=== PATIENT | male | born 1980 | race Caucasian/White ===

== ENCOUNTER 2024-01-03 22:28 | Emergency (ER) | payer OTHER, SELFPAY ==
[2024-01-03 22:31] VITALS: BP 173/86; PULSE 109; RESP 16; TEMP 36.9; O2SAT 98; BMI 29.0
--- NOTE | 2024-01-03 22:41 | XR_ITS ---
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 . Comparison: None. Technique: 4 views left knee Findings/Impression: There is no fracture or malalignment. There is minimal degenerative change. There is no knee joint effusion. Electronically authenticated by: TALIA VILLAFANA Date: 01/03/2024 23:11
--- NOTE | 2024-01-03 22:42 | ED.LOWEXI1 ---
HPI - Extremity Injury (Lower) General Chief Complaint: Extremity Injury, Lower Stated Complaint: LT KNEE INJURY Time Seen by Provider: 01/03/24 22:30 Source: patient Mode of arrival: walk-in Limitations: no limitations History of Present Illness HPI Narrative: Patient works at [employer] [place], around 30 minutes ago, a pipe wrench that was attached to a machine he was working with, suddenly flew off the machine as it was started up and started spinning. The pipe wrench struck the patient in the medial left knee. Nothing taken for pain INCOME TAX CONSULTANT. Related Data Previous Rx's Medication Instructions Recorded nabumetone 750 mg tablet 750 mg PO BID PRN pain #14 tabs 01/03/24 Allergies Allergy/AdvReac Type Severity Reaction Status Date / Time No Known Drug Allergies Allergy Verified 01/03/24 22:37 PFSH [facility] Social History Smoking status: Former smoker Exam Narrative Exam Narrative: Nurses note and vital signs reviewed and patient is not hypoxic. afebrile General: The patient appears well and in no apparent distress. Patient is resting comfortably on cart. GCS = 15. Skin: Warm, dry, no pallor noted. Cardiovascular: Normal peripheral perfusion Respiratory: Patient is in no distress, no accessory muscle use, no wheezing. Musculoskeletal: Tenderness and early ecchymosis to the medial left knee, which has decreased ROM secondary to pain. No deformity noted. No pain with left patellar manipulation. No additional sign of long bone fracture. Moves three remaining extremities in all modalities with 5/5 strength. Neurological: A&O x4, normal equal panel saw operator strength, normal finger to nose, normal speech, normal coordination, normal motor, normal sensory. Psychiatric: Cooperative Constitutional Vital Signs, click to edit/add: Last Vital Signs Temp 98.4 F 01/03/24 22:31 Pulse 109 H 01/03/24 22:31 Resp 16 01/03/24 22:31 BP 173/86 H 01/03/24 22:31 Pulse Ox 98 01/03/24 22:31 O2 Del Method Room Air 01/03/24 22:31 Course Vital Signs Vital signs: Vital Signs Temperature 98.4 F 01/03/24 22:31 Pulse Rate 109 H 01/03/24 22:31 Respiratory Rate 16 01/03/24 22:31 Blood Pressure 173/86 H 01/03/24 22:31 Pulse Oximetry 98 01/03/24 22:31 Oxygen Delivery Method Room Air 01/03/24 22:31 Temperature 98.4 F 01/03/24 22:31 Pulse Rate 109 H 01/03/24 22:31 Respiratory Rate 16 01/03/24 22:31 Blood Pressure 173/86 H 01/03/24 22:31 Pulse Oximetry 98 01/03/24 22:31 Oxygen Delivery Method Room Air 01/03/24 22:31 MDM - Extremity Injury (Lower) MDM Narrative Medical decision making narrative: Patient given oral Toradol for pain. Xrays of the left knee obtained. No fracture or subluxation identified on xrays. ED nurse applied an akira wrap to the patient's left knee. His pain was significant enough on standing that he had trouble with weight bearing so he was given crutches and trained on use by the ED nurse. He was discharged home with prescription for Relafen. He will need to see occupational health for follow up. Work restrictions noted on the [facility] [place] paperwork I completed. 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 . Comparison: None. Technique: 4 views left knee Findings/Impression: There is no fracture or malalignment. There is minimal degenerative change. There is no knee joint effusion. Electronically authenticated by: TALIA VILLAFANA Date: 01/03/2024 23:11 Discharge Plan Discharge Chief Complaint: Extremity Injury, Lower Clinical Impression: Contusion of knee, left Patient Disposition: Home, Self-Care Time of Disposition Decision: 23:15 Prescriptions / Home Meds: New nabumetone 750 mg tablet 750 mg PO BID PRN (Reason: pain) Qty: 14 0RF Instructions: Contusion in Adults (ED), Knee Pain (ED) Referrals: [facility] [Outside] - As soon as possible Stand Alone Forms: Portal Instructions
[2024-01-03] MEDS: KETOROLAC TROMETHAMINE 10 MG TABLET PO (23:23)
== END 2024-01-03 23:45 | disposition home or self-care (01) ==
PROVIDERS: Emergency Provider Emergency Medicine; PCP Nurse Practitioner Family
DX: S80.02XA Contusion of left knee, initial encounter (principal); W20.8XXA Other cause of strike by thrown, projected or falling object, initial encounter
CPT/HCPCS: 73564; 99284

== ENCOUNTER 2024-01-05 10:26 | Outpatient (OUT) | payer OTHER, SELFPAY ==
--- OUTSIDE RECORDS SUMMARY | 2024-01-05 10:31 | XMS_ITS | CCD ---
Author Name Unknown Address [address] [place] [address] Organization [facility] Care Team Providers Care Foreign Policy Officer Name Role Phone NO FAMILY PHYSICIAN Primary Care Unavailable Bud Lin Admitting Unavailable Bud Lin Attending Unavailable YAYO GARCIA Attending Unavailable MORRIS, DR MEGAN Malik Consulting Unavailable REQUEST, NONE LISTED Primary Care Unavaila ble YAYO GARCIA Admitting Unavailable JOHN BRUNO Consulting Unavailable Problems Active Problems Problem Classification Problem Date Documented Da te Episodic/Chronic Other upper respiratory infections (1 source) Acute upper respiratory infection, unspecified; Translations: [ACUTE UP RESPIRATORY INFECTION UNS] Onset: 08-30-2021 Episodic Substance-related disorders (1 source) Nicotine dependence, cigarettes, uncomplicated; Translations: [NICOTINE DEPEND CIGARETTES UNCOMP] Onset: 08-30-2021 Chronic Unclassified (1 source) R07.81 - Pleurodynia; Translations: [R07.81 - Pleurodynia] Onset: 11-17-2018 Unclassified (2 sources) COUGH, UNSPECIFIED; Translations: [COUGH, UNSPECIFIED] Onset: 08-30-2021 Unclassified (1 source) CONTACT W/AND (SUSP) EXPOS COVID-19; Translations: [CONTACT W/AND (SUSP) EXPOS COVID-19] Onset: 08-30-2021 Past or Other Problems Problem Classification Problem Date Documented Da te Episodic/Chronic Unclassified (1 source) COUGH, UNSPECIFIED; Translations: [COUGH, UNSPECIFIED] Onset: 08-28-2021 Results Test Name Value Interpretation Reference Range Facil ity Covid-19 PCR (CVDTBH)on 08-04 SARS-CoV-2 (COVID-19) RNA NASIMA+probe Ql (Unsp spec) Not detected Normal NOT DETECTED [facility] Comment on above: Result Comment: This test is not yet dior roved or cleared by the [place] FDA. When there are no FDA-approved or cleared tests available, and other criteria are met, FDA can make tests available under an emergency access mechanism called an Emergency Use Authorization (EUA). The EUA for this test is supported by the [place] of Health and Human Service's (HHS's) declaration that circumstances exist to justify the emergency use of in vitro diagnostics for the detection and/or diagnosis of the virus that causes COVID-19. This EUA will remain in effect (meaning this test can be used) for the duration of the COVID-19 declaration justifying emergency of IVDs, unless it is terminated or revoked by FDA (after which the test may no longer be used). When diagnostic testing is negative, the possibility of a false negative should be considered in the context of a patient's recent exposures and the presence of clinical signs and symptoms consistent with SARS-CoV-2. Performed By: #### [facility] #### [facility] [address] [place] [address] Dr. Jolene Gracia XR CHEST 1 Von 08-28-2021 XR CHEST 1 V EXAMINATION: XR CHES T 1 V HISTORY: COUGH COMPARISON: No relevant comparison available. FINDINGS: LUNGS: No significant pulmonary parenchymal abnormalities. VASCULATURE: No increased pulmonary vasculature. PLEURA: No pneumothorax, effusion, or pleural thickening. CARDIAC: No cardiomegaly or cardiac silhouette abnormality. MEDIASTINUM: No visible mass or adenopathy. BONES: No fracture or visible bone lesion. OTHER: Negative. IMPRESSION: 1. Normal examination. Electronically authenticated by: MEGAN CACERES Date: 2021-08-28 14:02 Normal [facility] Encounters Encounter Date Encounter Type Care Provider Facility Start: 08-28-2021 End: 08-28-2021 ambulatory YAYO GARCIA Facility: Start: 11-17-2018 End: 11-17-2018 Emergency department patient visit NO FAMILY PHYSICIAN Facility:[facility] Payers Date Payer Category Payer Self-pay 1980 Unknown [id number] [id number] [id number] 1958 Unknown [id number] Unknown [id number] 12.19.83 [id number] Summary Purpose Family History No Family History Records FoundNo Family History Records Found Advance Directives No Advanced Directives Records FoundNo Advanced Directives Records Found Additional Source Comments (unrecognized sect ion and content) No Status Records FoundNo Status Records Found INFORMATION SOURCE (unrecogn ized section and content) DATE CREATED AUTHOR 03/13/2019 [facility] DATE CREATED AUTHOR AUTHOR'S RENETTA MARTINEZ 08/30/2021 [facility] FOR RECORDS PERTAINING TO PATIENTS WHO ARE OR HAVE BEEN ENROLLED IN A CHEMICAL DEPENDENCY/SUBSTANCEABUSE PROGRAM, SOME INFORMATION MAY BE OMITTED. This clinical summary was aggregated from multiple sources. Caution should be exercised in using it in the provision of clinical care. This summary normalizes information from multiple sources, and as a consequence, information in this document may materially change the coding, format and clinical context of patient data. In addition, data may be omitted in some cases. CLINICAL DECISIONS SHOULD BE BASED ON THE PRIMARY CLINICAL RECORDS. [facility] [employer] [facility]. provides no warranty or guarantee of the accuracy or completeness of information in this document.
[2024-01-05 11:13] LABS: Basophils Percent Auto 0.4 % (0.2-2.0); Eosinophils Absolute Auto 0.1 10^3/uL (0.0-0.7); Eosinophils Percent Auto 0.9 % (0.9-7.0); Hematocrit 43.4 % (42.0-54.0); Immature Granulocytes Abs Auto 0.02 10^3/uL (0.00-0.03); Immature Granulocytes Pct Auto 0.3 % (0.0-0.5); Lymphocytes Absolute Auto 3.2 10^3/uL (1.2-3.8); Lymphocytes Percent Auto 40.3 % (20.5-60.0); Mean Corpuscular HGB Conc 34.6 g/dL (29.9-35.2); Mean Corpuscular Hemoglobin 30.7 pg (25.9-34.0); Mean Corpuscular Volume 88.9 fL (80.0-94.0); Monocytes Absolute Auto 0.4 10^3/uL (0.3-0.8); Monocytes Percent Auto 5.6 % (1.7-12.0); Neutrophils Absolute Auto 4.1 10^3/uL (1.4-6.5); Neutrophils Percent Auto 52.5 % (43.0-75.0); Platelet Count 190 10^3/uL (150-450); Red Blood Count 4.88 10^6/uL (4.70-6.10); Red Cell Distribution Width 12.1 % (11.0-15.0); White Blood Count 7.9 10^3/uL (4.0-11.0)
[2024-01-05 11:40] LABS: Cholesterol 319 mg/dL (<=200); Free T3 2.07 pg/mL (2.18-3.98); HDL Cholesterol 28 mg/dL (40-60); Thyroid Stimulating Hormone 0.567 uIU/mL (0.358-3.740); Triglycerides 3061 mg/dL (<=150); VLDL CHOLESTEROL 612.2 mg/dL
[2024-01-05 11:41] LABS: Chol HDL Ratio 11.4
[2024-01-05 11:42] LABS: LDL Cholesterol Direct 33 mg/dL
[2024-01-05 12:29] LABS: Estimated Average Glucose 355 mg/dL; Glycohemoglobin A1C >14.0 % (4.5-6.2)
[2024-01-06 10:11] LABS: Insulin 5.7 uIU/mL (2.6-24.9)
== END 2024-01-05 10:27 | disposition home or self-care (01) ==
LOC: LAB 10:28
PROVIDERS: PCP Nurse Practitioner Family; Visit Provider Nurse Practitioner Family
DX: Z00.00 Encounter for general adult medical examination without abnormal findings (principal)
CPT/HCPCS: 36415; 80053; 80061; 83036; 83525; 83721; 84436; 84443; 84481; 85025

== ENCOUNTER 2024-01-14 13:55 | Outpatient (OUT) | payer OTHER, SELFPAY | END 2024-01-14 13:56 | disposition home or self-care (01) | LOC: MN 13:57 | PROVIDERS: PCP Nurse Practitioner Family | DX: E11.8 Type 2 diabetes mellitus with unspecified complications (principal); Z71.3 Dietary counseling and surveillance | CPT/HCPCS: G0108 ==

== ENCOUNTER 2024-01-23 11:06 | Outpatient (OUT) | payer OTHER, SELFPAY ==
--- OUTSIDE RECORDS SUMMARY | 2024-01-23 11:09 | XMS_ITS | CCD ---
Author Organization [facility] Care Team Providers Care Treasury Assistant Name Role Phone YAYO GARCIA Attending Unavailable MORRIS, DR MEGAN Malik Consulting Unavailable REQUEST, NONE LISTED Primary Care Unavaila YAYO Arguelles Admitting Unavailable JOHN BRUNO Consulting Unavailable Yaa Sanchez Attending Unavailable Yaa Sanchez Admitting Unavailable NO FAMILY, PHYSICIAN Primary Care Unavailable Problems Active Problems Problem Classification Problem Date Documented Da te Episodic/Chronic Other upper respiratory infections (1 source) Acute upper respiratory infection, unspecified; Translations: [ACUTE UP RESPIRATORY INFECTION UNS] Onset: 08-30-2021 Episodic Substance-related disorders (1 source) Nicotine dependence, cigarettes, uncomplicated; Translations: [NICOTINE DEPEND CIGARETTES UNCOMP] Onset: 08-30-2021 Chronic Unclassified (2 sources) COUGH, UNSPECIFIED; Translations: [COUGH, UNSPECIFIED] Onset: 08-30-2021 Unclassified (1 source) CONTACT W/AND (SUSP) EXPOS COVID-19; Translations: [CONTACT W/AND (SUSP) EXPOS COVID-19] Onset: 08-30-2021 Unclassified (1 source) Encounter for general adult medical examination without abnormal findings; Translations: [Encounter for general adult medical examination without abnormal findings] Onset: 01-05-2024 Past or Other Problems Problem Classification Problem Date Documented Da te Episodic/Chronic Unclassified (1 source) COUGH, UNSPECIFIED; Translations: [COUGH, UNSPECIFIED] Onset: 08-28-2021 Results Test Name Value Interpretation Reference Range Facil ity Comprehensive Metabolic Pane josiah 01-05-2024 Albumin [Mass/Vol] 4.1 g/dL Normal 3.5-5.7 [facility] Comment on above: Performed By: #### C MP #### [facility] [address] Albumin/Globulin [Mass ratio] 1.6 {ratio} Normal [facility] Comment on above: Performed By: #### C MP #### [address] ALP [Catalytic activity/Vol] 172 U/L High 34-104 [facility] Comment on above: Result Comment: PERF ORMED BY: [place] [address] PATHOLOGIST ASSOCIATE PROFESSOR PLANT PATHOLOGY FELICITY MARIEE M.D. Performed By: #### C MP #### [address] ALT [Catalytic activity/Vol] 31 U/L Normal 7-52 [facility] Comment on above: Performed By: #### C MP #### [address] Anion gap [Moles/Vol] 18.4 mmol/L High 6.0-15.0 [facility] Comment on above: Performed By: #### C MP #### [address] AST [Catalytic activity/Vol] 16 U/L Normal 13-39 [facility] Comment on above: Performed By: #### C MP #### [address] Bilirubin [Mass/Vol] 0.4 mg/dL Normal 0.3-1.0 [facility] Comment on above: Performed By: #### C MP #### [address] Calcium [Mass/Vol] 8.9 mg/dL Normal 8.6-10.3 [facility] Comment on above: Performed By: #### C MP #### [place] [address] [place] Chloride [Moles/Vol] 98 mmol/L Normal 98-107 [facility] Comment on above: Performed By: #### C MP #### [address] CO2 [Moles/Vol] 21.6 mmol/L Normal 21.0-31.0 [facility] Comment on above: Performed By: #### C MP #### [address] Creatinine [Mass/Vol] 0.83 mg/dL Normal 0.70-1.30 [facility] Comment on above: Performed By: #### C MP #### [place] [address] [place] GFR/1.73 sq M.predicted MDRD (S/P/Bld) [Vol rate/Area] mL/min/{1.73_m2} Normal [facility] Comment on above: Performed By: #### C MP #### [address] Globulin (S) [Mass/Vol] 2.6 g/dL Normal [facility] Comment on above: Performed By: #### C MP #### [address] Glucose [Mass/Vol] 390 mg/dL High 70-100 [facility] Comment on above: Result Comment: [place] Glucose Reference Range is dependent on time and content of last meal. Glucose of more than 200 mg/dL in a nonstressed, ambulatory subject supports the diagnosis of Diabetes Mellitus. ADA recommended reference range Performed By: #### C MP #### [address] Potassium [Moles/Vol] 4.0 mmol/L Normal 3.5-5.1 [facility] Comment on above: Performed By: #### C MP #### [address] Protein [Mass/Vol] 6.7 g/dL Normal 6.4-8.9 [facility] Comment on above: Performed By: #### C MP #### [address] Sodium [Moles/Vol] 134 mmol/L Low 136-145 [facility] Comment on above: Performed By: #### C MP #### [address] [place] [address] [facility] Urea nitrogen [Mass/Vol] 13 mg/dL Normal 7-25 [facility] Comment on above: Performed By: #### C #### [facility] [address] [place] [address] [facility] Covid-19 PCR (CVDTB)on 08-04 SARS-CoV-2 (COVID-19) RNA NASIMA+probe Ql (Unsp spec) Not detected Normal NOT DETECTED [facility] Comment on above: Result Comment: This test is not yet approved or cleared by the [place] FDA. When there are no FDA-approved or cleared tests available, and other criteria are met, FDA can make tests available under an emergency access mechanism called an Emergency Use Authorization (EUA). The EUA for this test is supported by the [place] of Health and Human Service's (HHS's) declaration [...] consistent with SARS-CoV-2. Performed By: #### [facility] #### [facility] [address] [address] [address] Jolene Gracia XR CHEST 1 Von 08-28-2021 XR CHEST 1 V EXAMINATION: XR CHEST 1 V HISTORY: COUGH COMPARISON: No relevant [...] MEGAN CACERES Date: 2021-08-28 14:02 Normal [facility] Encounters Encounter Date Encounter Type Care Provider Facility Start: 01-05-2024 End: 01-05-2024 ambulatory Yaa Sanchez Facility:[facility] Start: 08-28-2021 End: 08-28-2021 ambulatory YAYO GARCIA Facility: Payers Date Payer Category Payer Private Health Insurance [id number] 2024 Self-pay 1980 Unknown [id number] [id number] [id number] 1958 Unknown [id number] Unknown [id number] [id number] [id number] Summary Purpose Family History No Family History Records FoundNo Family History Records Found Advance Directives No Advanced Directives Records FoundNo Advanced Directives Records Found Additional Source Comments (unrecognized sect ion and content) No Status Records FoundNo Status Records Found INFORMATION SOURCE (unrecogn ized section and content) DATE CREATED AUTHOR 08/30/2021 [facility] DATE CREATED AUTHOR AUTHOR'S ORGANIZ ATION 01/17/2024 [facility] FOR RECORDS PERTAINING TO PATIENTS WHO ARE [...] BE BASED ON THE PRIMARY CLINICAL RECORDS. [employer] provides no warranty or guarantee of the accuracy or completeness of information in this document.
--- NOTE | 2024-01-23 11:31 | XR_ITS ---
The [address] [address] Patient Name: CHAPO MARIA MRN: [id number] date: 1980 Sex: M Assigned Patient Location: RAD Current Patient Location: [facility] Accession/Order Number: [id number] Exam Date: 01/23/2024 11:20 Report Date: 01/23/2024 15:49 At the request of: VICTOR MANUEL CURIEL Procedure: XR knee LT 4V EXAM: XR knee LT 4V HISTORY: Contusion, Hematoma Left Knee injury to the medial knee beginning of January. Persistent pain. COMPARISON: 01/03/2024. TECHNIQUE: 4 views of the left knee. FINDINGS: Bony alignment appears preserved without significant joint space narrowing or marginal spur. No acute fracture is identified. Enthesophyte at the quadriceps tendon insertion. No sizable knee joint effusion or significant prepatellar soft tissue swelling. XR/XR knee LT 4V IMPRESSION: 1. No acute osseous variation identified. 2. No significant osteoarthritis. Electronically authenticated by: JANIE ESQUIVEL Date: 01/23/2024 15:49
== END 2024-01-23 11:07 | disposition home or self-care (01) ==
LOC: RAD 11:07
PROVIDERS: PCP Nurse Practitioner Family; Visit Provider Nurse Practitioner Family
DX: S80.02XA Contusion of left knee, initial encounter (principal)
CPT/HCPCS: 73564

== ENCOUNTER 2024-03-21 00:14 | Emergency (ER) | payer OTHER, SELFPAY ==
[2024-03-21 00:16] VITALS: BP 150/101; PULSE 129; TEMP 36.9; O2SAT 96; BMI 32.5
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
--- OUTSIDE RECORDS SUMMARY | 2024-03-21 00:23 | XMS_ITS | CCD ---
Author Organization [facility] Care Team Providers Care Financial Sales Advisor Name Role Phone YAYO GARCIA Attending Unavailable [...] 01-05-2024 Albumin [Mass/Vol] 4.1 g/dL Normal 3.5-5.7 [facility] Comment on above: Performed By: #### C MP #### [facility] [address] Albumin/Globulin [Mass ratio] 1.6 {ratio} Normal [facility] Comment on above: Performed By: #### C MP #### [address] ALP [Catalytic activity/Vol] 172 U/L High 34-104 [facility] Comment on above: Result Comment: PERF ORMED BY: [place] [address] PATHOLOGIST ROTARY PEEL OVEN TENDER FELICITY MARIEE M.D. Performed By: #### C MP #### [address] ALT [Catalytic activity/Vol] 31 U/L Normal 7-52 [facility] Comment on above: Performed By: #### C MP #### [address] Anion gap [Moles/Vol] 18.4 mmol/L High 6.0-15.0 [facility] Comment on above: Performed By: #### C MP #### [address] AST [Catalytic activity/Vol] 16 U/L Normal 13-39 [facility] Comment on above: Performed By: #### C MP #### [address] Bilirubin [Mass/Vol] 0.4 mg/dL Normal 0.3-1.0 [facility] Comment on above: Performed By: #### C MP #### [address] Calcium [Mass/Vol] 8.9 mg/dL Normal 8.6-10.3 [facility] Comment on above: Performed By: #### C MP #### [place] [address] [place] Chloride [Moles/Vol] 98 mmol/L Normal 98-107 [facility] Comment on above: Performed By: #### C MP #### [address] CO2 [Moles/Vol] 21.6 mmol/L Normal 21.0-31.0 [facility] Comment on above: Performed By: #### C MP #### [address] Creatinine [Mass/Vol] 0.83 mg/dL Normal 0.70-1.30 [facility] Comment on above: Performed By: #### C MP #### [place] [address] [place] GFR/1.73 sq M.predicted MDRD (S/P/Bld) [Vol rate/Area] mL/min/{1.73_m2} Normal [facility] Comment on above: Performed By: #### C MP #### [address] Globulin (S) [Mass/Vol] 2.6 g/dL Normal [facility] Comment on above: Performed By: #### C MP #### [address] Glucose [Mass/Vol] 390 mg/dL High 70-100 [facility] Comment on above: Result Comment: [place] Glucose Reference Range is dependent on time and content of last meal. Glucose of more than 200 mg/dL in a nonstressed, ambulatory subject supports the diagnosis of Diabetes Mellitus. ADA recommended reference range Performed By: #### C MP #### [address] Potassium [Moles/Vol] 4.0 mmol/L Normal 3.5-5.1 [facility] Comment on above: Performed By: #### C MP #### [address] Protein [Mass/Vol] 6.7 g/dL Normal 6.4-8.9 [facility] Comment on above: Performed By: #### C MP #### [address] Sodium [Moles/Vol] 134 mmol/L Low 136-145 [facility] Comment on above: Performed By: #### C MP #### [address] [place] [address] [facility] Urea nitrogen [Mass/Vol] 13 mg/dL Normal 7-25 [facility] Comment on above: Performed By: #### C #### [facility] [address] [place] [address] [facility] Covid-19 PCR (CVDTB)on 08-04 SARS-CoV-2 (COVID-19) RNA NASIMA+probe Ql (Unsp spec) Not detected Normal NOT DETECTED [facility] Comment on above: Result Comment: This test is not yet approved or cleared by the [place] FDA. When there are no FDA-approved or cleared tests available, and other criteria are met, FDA can make tests available under an emergency access mechanism called an Emergency Use Authorization (EUA). The EUA for this test is supported by the [place] of Health and Human Service's (HHS's) declaration [...] consistent with SARS-CoV-2. Performed By: #### [facility] #### [facility] [address] [address] [address] Jolene Gracia XR CHEST 1 Von [...] MEGAN CACERES Date: 2021-08-28 14:02 Normal [facility] Encounters Encounter Date Encounter Type Care Provider Facility Start: 01-05-2024 End: 01-05-2024 ambulatory Yaa Sanchez Facility:[facility] Start: 08-28-2021 End: 08-28-2021 ambulatory YAYO GARCIA Facility: Payers Date Payer Category Payer Private Health Insurance [id number] 2024 Self-pay 1980 Unknown [id number] 1958 Unknown [id number] Unknown [id number] Summary Purpose Family History No Family History Records FoundNo Family History Records Found Advance Directives No Advanced Directives Records FoundNo Advanced Directives Records Found Additional Source Comments (unrecognized sect ion and content) No Status Records FoundNo Status Records Found INFORMATION SOURCE (unrecogn ized section and content) DATE CREATED AUTHOR 08/30/2021 [facility] DATE CREATED AUTHOR AUTHOR'S ORGANIZ ATION 01/17/2024 [facility] FOR RECORDS PERTAINING TO PATIENTS WHO ARE [...] BE BASED ON THE PRIMARY CLINICAL RECORDS. [employer] provides no warranty or guarantee of the accuracy or completeness of information in this document.
[2024-03-21] MEDS: ADACEL DIPH,PERTUSS(ACELL),TET VAC/PF 0.5 ML ADULT SYRINGE IM (00:41)
== END 2024-03-21 00:48 ==
PROVIDERS: Emergency Provider Emergency Medicine; PCP Nurse Practitioner Family
DX: S01.85XA Open bite of other part of head, initial encounter (principal); F10.129 Alcohol abuse with intoxication, unspecified; Y04.1XXA Assault by human bite, initial encounter; Z23 Encounter for immunization
CPT/HCPCS: 90471; 90715; 99283

== ENCOUNTER 2025-09-23 11:22 | Outpatient (OUT) | payer OTHER, SELFPAY ==
--- OUTSIDE RECORDS SUMMARY | 2025-09-20 10:00 | XMS_ITS ---
Author Organization [facility] in [place] Address [address] [place] [address] Care Team Providers Care Division Leader Name Role Phone Yaa Sanchez Primary Care Provider Allergies No Known Allergies REASON FOR VISIT stomach virus, possible food poison after eating sausage, diarrhea, vomiting yesterday, stomach pains, patient is co nerve pain, neuropathy in feet, feels thirsty Medications Medication SIG (Take, Route, Frequency, Duration) Notes Start Date End Date Status Ondansetron HCl 4 MG 1 tablet Orally BID prn; Du ration: 10 01/19/2024ctiveGabapentin 300 MG1 capsule prn Orally twice a day; Duration: 30 09/20/2025tiveGlucose Test Strips -1 strip via meter once daily to monitor glucose DX E11.9; Duration: 01/06/2024ctiveSimvastatin 20 MG1 tablet in the evening Orally Once a day; Duration: 30 01/06/2024Not-TakingLancets -as directed every am; Duration: 30 01/06/2024ctiveBlood Glucose Monitor System w/Deviceas directed daily; Duration: 30 dayscheck fasting blood sugar every morning and lmnqsy2701/06/2024Not-TakingGlimepiride 4 MGTAKE 1 TABLET ORALLY WITH BREAKFAST OR THE FIRST MAIN MEAL OF THE DAY ONCE A DAY FOR 30 DAYS; Duration: 90 daysNot-TakingIcosapent Ethyl 1 GM2 capsules with meals Orally Twice a day; Duration: 90 daysNot-TakingmetFORMIN HCl 500 MG1 tablet with a meal Orally BID; Duration: 30 01/05/2024ctive Social History Tobacco Use: Social History Observation Description Date Details (start date - stop date) Current Smoker 11/03/1995 - NA Tobacco Use/Smoking Question Answer Notes Patient is a current smoker When did you start smoking?11/03/1995AUDIT-C (Standard) Question Answer Notes Did you have a drink containing alcohol in the p ast year? No Egpypt9BnxibveelasuazTgcbzoqjInwyfdf Notes: Stopped drinking 8 months ag o Problems Problem Type SNOMED Code ICD Code Onset Dates Problem Status W/U Status Risk Notes Problem Diabetes mellitus un controlled (264314636) Uncontrolled diabetes mellitus (E11.65) ActiveconfirmedProblemPeripheral neuropathy (162276922)Peripheral neuropathy (G62.9)Activeconfirmed Vital Signs Weight 210 lbs 09/20/2025 Height 69 in 09/20/2025 Blood pressure systolic 128 mm Hg 09/20/20 25 Blood pressure diastolic 80 mm Hg 025 BMI 31.01 kg/m2 09/20/2025 BS 337 Encounters Encounter Location Date Provider Diagnosis [facility] [address] [place] [address] 09/20/2025 Yaa Sanchez Uncontrolled diabete s mellitus E11.65 ; Noncompliance Z91.199 ; Peripheral neuropathy G62.9 ; Wellness examination Z00.00 and Diarrhea R19.7 Assessments Encounter Date Diagnosis (ICD Code) Assessment Notes Treatment Notes Treatment Clinical Notes Section Notes 09/20/2025 Uncontrolled diabetes mellitus ( ICD-10 - E11.65) Patient educated on Diabetic diet... Reviewed Hypoglycemia / Hyperglycemia action plan: Instructed to call office if blood sugar above 350 or below 65 consecutively. Reviewed with patient the printing mechanist effects of Diabetes Mellitus on the body and organs. Instructed patient to check feet daily, wearsocks daily, wear proper fitting shoes, lotion feet at night with no lotion between toes, powder between toes. Follow-up with podiatry Q6M and PRN. No toenail clipping except by Podiatry. Please bring glucase meter and record to each appointment, Please feel free to call if you have questions or concerns about management or condition. Please call 1 week before medications are depleted for refills. If you are instructed to be fasting for procedure or testing, please call for dosing instructions. to ER if needed 09/20/2025Noncompliance (ICD-10 - Z91.199) stopped taking all meds looks like over a year ago was trying to control BS naturally with diet family told him the meds he was on were bad 09/20/2025Peripheral neuropathy (ICD-10 - G62.9)09/20/2025Wellness examination (ICD-10 - Z00.00)09/20/2025Diarrhea (ICD-10 - R19.7) push fluids, electrolytes notify office if diarrhea continues over a week, will order stool studies no recent abx use thinks food poisoning Plan Of Treatment Medication Medication Name Sig Start Date Stop Date Notes Ondansetron HCl 4 MG 1 tablet Orally BID prn; Duration : 10 days 01/19/2024 Gabapentin 300 MG1 capsule prn Orally twice a day; Duration: 30 days09/20/2025 Glucose Test Strips -1 strip via meter once daily to monitor glucose DX E11.9; Duration: 90 days01/06/2024Lancets -as directed every am; Duration: 30 days 01/06/2024metFORMIN HCl 500 MG1 tablet with a meal Orally BID; Duration: 30 days 01/05/2024Treatment Notes Assessment Notes Uncontrolled diabetes mellitus Patient educated on Diabetic diet... Reviewed Hypoglycemia / Hyperglycemia action plan: Instructed to call office if blood sugar above 350 or below 65 consecutively. Reviewed with patient the printing mechanist effects of Diabetes Mellitus on the body and organs. Instructed patient to check feet daily, wear socks daily, wear proper fitting shoes, lotion feet at night with no lotion between toes, powder between toes. Follow-up with podiatry Q6M and PRN. No toenail clipping except by Podiatry. Please bring glucase meter and record to each appointment, Please feel free to call if you have questions or concerns about management or condition. Please call 1 week before medications are depleted for refills. If you are instructed to be fasting for procedure or testing, please call for dosing instructions. to ER if needed Noncompliance stopped taking all meds looks like over a year ago was trying to control BS naturally with diet family told him the meds he was on were bad Diarrhea push fluids, electrolytes notify office if diarrhea continues over a week, will order stool studies no recent abx use thinks food poisoning Pending Test Test Name Order Date HEMOGLOBIN A1C (GLYCO) 09/20/2025 INSULIN, TOTAL 09/20/2025 LIPID PANEL (CHOL/TRIG/HDL/LDL) 09/20/20 25 URIC ACID 09/20/2025 THYROID PANEL (T4/TSH/FREE T3) 5 PSA, SCREENING 09/20/2025 CMP (COMP MET PHAN) w/eGFR CKD-EPI 2024 CBC WITH DIFF 09/20/2025 Next Appt Details Follow Up: prn,2 Weeks, Reas on: Progress Notes * Wan YUSUF ADOB:[birth year] (45 yo M)Acc No.[id number]:09/20/2025 UNLOCKED PROGRESS NOTE Progress Note Patient: Wan GIRALDO :?Yaa Pam Laura ([facility]), CNPDOB:1980 ???Age:45 Y???Sex:MaleDate:09/20/2025Phone:[phone]:[address] [facility], [id number] In:02:55 PM ESTCheck Out:03:32 PM EST Subjective: * Chief Complaints: * 1 . Stomach virus, possible food poison after eating sausage, diarrhea, vomiting yesterday, stomach pains. 2. Patient is co nerve pain, neuropathy in feet, feels thirsty. * HPI: ???General:? Friday night into Friday? diarrhea today twice, watery last night threw up twice feels nauseous changed diet after talking to sales consultant residential manager last couple. * ROS: ???General/Constitutional:?Fatigue?admits.?Hot Flashes?admits.?Feeling Poorly?admits .?Fever?denies.?Headache?denies.?Weight loss?denies.?Other ?increased thirst and urination past couple of months.?Ophthalmologic:?Discharge?denies.?Eye Pain?denies.?Itching and redness?denies.?ENT:?Nasal discharge?denies.?Nasal congestion?denies. Sore throat?denies.?Cardiovascular:?Chest tightness/ heavy pressure?denies.?Rapid heart rate?denies.?Swelling of extremities?denies.?Chest pain?denies.?Respiratory:?Productive cough?denies.?Chest pain?denies.?Cough?denies.?Shortness of breath?denies.?Wheezing?denies.?Gastrointestinal:?Abdominal pain?denies.?Constipation?denies.?Decreased appetite?denies.?Diarrhea?admits.?Nausea?admits.?Vomiting?admits.?Genitourinary:?Urinary incontinence?denies.?Painful urination?denies.?Musculoskeletal:?Back pain?denies.?Neck pain?denies.?Muscle aches?denies.?Skin:?Rash?denies.?Skin lesion(s)?denies.?numbness and tingling in feet restless legs? insomnia. * Medical History: D epression, Anxiety. * Surgical History: A PPENDECTOMY . * Family History: F ather: alive, diagnosed with Hypertension. M other: alive, Cancer, alcoholism, diagnosed with Hypertension. B rother(s): alive, OCD. S ister(s): alive. S on(s): alive. D moo(s): alive. 3 brother(s) , 1 sister(s) . 1 son(s) , 5 daughter(s) . . * Social History: ???Tobacco Use:?Tobacco Use/Smoking?Patient is a?current smoker ?When did you start smoking??11/03/1995 ???Drug/Alcohol:?AUDIT-C (Standard)?Did you have a drink containing alcohol in the past year??No ?Points?0 ?Interpretation?Negative ???Stopped drinking 8 months ago. * Medications: N ot-Taking/PRN Blood Glucose Monitor System w/Device Kit as directed daily , Notes to Pharmacist: check fasting blood sugar every morning and record, Not-Taking/PRN Glimepiride 4 MG Tablet TAKE 1 TABLET ORALLY WITH BREAKFAST OR THE FIRST MAIN MEAL OF THE DAY ONCE A DAY FOR 30 DAYS , Not-Taking/PRN Glucose Test Strips - - 1 strip via meter once daily to monitor glucose DX E11.9 , Not-Taking/PRN Icosapent Ethyl 1 GM Capsule 2 capsules with meals Orally Twice a day , Not-Taking/PRN Lancets - Miscellaneous as directed every am , Not-Taking/PRN metFORMIN HCl 1000 MG Tablet 1 tablet with a meal Orally BID , Not-Taking/PRN Ondansetron HCl 4 MG Tablet 1 tablet Orally BID prn , Not-Taking/PRN Simvastatin 20 MG Tablet 1 tablet in the evening Orally Once a day , Medication List reviewed and reconciled with the patient * Allergies: N .K.D.A. Objective: * Vitals: W t:210lbs, Ht: 69 in, BP:128/80mm Hg, BMI:31.01Index, Ht-cm: 175.26 cm, Wt-k.26 kg. BS 337. * Examination: ???General Examinations: ?GENERAL APPEARANCE:?alert and oriented,?in no acute distress.?EYES:?conjunctiva normal, sclera non-icteric.?NOSE:?normal external appearance.?LUNGS:?clear to auscultation bilaterally.?CARDIO:?regular rate and rhythm, S1, S2 normal.?ABDOMEN:?soft, nontender.?MUSCULOSKELETAL:?Gait and station normal.?SKIN:?warm and dry.? Assessment: * Assessment: 1.?Uncontrolled diabetes mellitus - E11.65 (Primary)???2.?Noncompliance - Z 91.199???3.?Peripheral neuropathy - G62.9???4.?Wellness examination - Z00.00???5.?Diarrhea - R19.7??? Plan: * Treatment: Refill Glucose Test Strips -, -, 1 strip, via meter, once daily to monitor glucose DX E11.9, 90 days, 100, Refills 3;?Refill Lancets Miscellaneous, -, as directed, every am, 30 days, 30, Refills5;?Refill Ondansetron HCl Tablet, 4 MG, 1 tablet, Orally, BID prn, 10 days, 20, Refills 0; Refill metFORMIN HCl Tablet, 500 MG, 1 tablet with a meal, Orally, BID, 30 days, 60 Tablet, Refills 1.?? Notes: Patient educated on Diabetic diet... Reviewed Hypoglycemia / Hyperglycemia action plan: Instructed to call office if blood sugar above 350 or below 65 consecutively. Reviewed with patient the fdc effects of Diabetes Mellitus on the body and organs. Instructed patient to check feet daily, wear socks daily, wear proper fitting shoes, lotion feet at night with no lotion between toes, powder between toes. Follow-up with podiatry Q6M and PRN. No toenail clipping except by Podiatry. Please bring glucase meter and record to each appointment, Please feel free to call if you have questions or concerns about management or condition. Please call 1 week before medications are depleted for refills. If you are instructed to be fasting for procedure or testing, please call for dosing instructions. to ER if needed ??2.?Noncompliance? Notes: stopped taking all meds looks like over a year ago was trying to control BS naturally with diet family told him the meds he was on were bad??3.?Peripheral neuropathy? Start Gabapentin Capsule, 300 MG, 1 capsule prn, Orally, twice a day, 30 days, 60 Capsule, Refills 0.??4.?Wellness examination?LAB: HEMOGLOBIN A1C (GLYCO) ?LAB: INSULIN, TOTAL ?LAB: LIPID PANEL (CHOL/TRIG/HDL/LDL) ?LAB: URIC ACID ?LAB: THYROID PANEL (T4/TSH/FREE T3) ?LAB: PSA, SCREENING ?LAB: CMP (COMP MET PHAN) w/eGFR CKD-EPI ?LAB: CBC WITH DIFF5.?Diarrhea? Notes: push fluids, electrolytes notify office if diarrhea continues over a week, will order stool studies no recent abx use thinks food poisoning?? * Preventive Medicine: ??Screenings/Counseling:?BMI ACTION PLAN?Above Normal BMI Follow-up?Dietary management education, guidance, and counseling ?TOBACCO ACTION PLAN?Patient counselled on the dangers of tobacco use and urged to quit.?. * Follow Up: p rn,2 Weeks * * Electronic signature of Yaa Sanchez NP, PIPE [email or web address] [email or web address] on 09/23/2025 at 11:25 AM ESTSign off status: PendingVisit Status:?CHK (Check Out) * Provider: Yury Sanchez ([facility]), BED MAKER Date: 11/20/2024 Generated for Printing/Faxing/eTransmitting on:?09/23/2025 11:25 AM EST History and Physical Notes * HPI (History of Present Illness) CategorySub-CategoryDetailNotesCategory NotesGeneral Friday night into Friday diarrhea today twice, watery last night threw up twice feels nauseous changed diet after talking to sales consultant residential manager last couple Examination CategorySub-CategoryDetailNotesCategory NotesGeneral ExaminationsGENERAL APPEARANCE:alert and oriented, in no acute distressEYES:conjunctiva normal, sclera non-ictericEARS:NOSE:normal external appearanceTHROAT:CARDIO:regular rate and rhythm, S1, S2 normalLUNGS:clear to auscultation bilaterallyABDOMEN:soft, nontenderSKIN:warm and dryBACK:MUSCULOSKELETAL:Gait and station normalLYMPH NODES:
--- OUTSIDE RECORDS SUMMARY | 2025-09-23 11:26 | XMS_ITS | Patient Health Record ---
Author Organization [facility] in [place] Address [address] [place] [address] Care Team Providers Care Farm Consultant Name Role Phone Yaa Sanchez Primary Care Provider Allergies No Known Allergies Reason For Referral No Information Medications Medication SIG (Take, Route, Frequency, Duration) Notes Start Date End Date Status Ondansetron HCl 4 MG 1 tablet Orally BID prn; Du ration: 10 days 01/19/2024ctiveGabapentin 300 MG1 capsule prn Orally twice a day; Duration: 30 days5ActiveBlood Glucose Monitor System w/Deviceas directed daily; Duration: 30 dayscheck fasting blood sugar every morning and pxapat7501/06/2024 Not-TakingGlucose Test Strips -1 strip via meter once daily to monitor glucose DX E11.9; Duration: 90 01/06/2024ctiveGlimepiride 4 MGTAKE 1 TABLET ORALLY WITH BREAKFAST OR THE FIRST MAIN MEAL OF THE DAY ONCE A DAY FOR 30 DAYS; Durati on: 90 daysNot-TakingIcosapent Ethyl 1 GM2 capsules with meals Orally Twice a day; Duration: 90 daysNot-TakingSimvastatin 20 MG1 tablet in the evening Orally Once a day; Duration: 01/06/2024Not-TakingLancets -as directed every am; Duration: 30 01/06/2024ctivemetFORMIN HCl 500 MG1 tablet with a meal Orally BID; Duration: 30 01/05/2024ctive Social History Tobacco Use: Social History Observation Description Date Details (start date - stop date) Current Smoker 11/03/1995 - NA Tobacco Use/Smoking Question Answer Notes Patient is a current smoker When did you start smoking?11/03/1995Alcohol Screen (Audit-C) Question Answer Notes Did you have a drink containing alcohol in the p ast year? No Geazuh4LgtahicdgymrraLfwtgnwjTLMWJ-G (Standard) Question Answer Notes Did you have a drink containing alcohol in the p ast year? No Cqddgp9DsvpfrodktjikfVmqhnbztIijaxep Notes: Stopped drinking 8 months ag o Stopped drinking 8 months ag o Stopped drinking 8 months ag o Stopped drinking 8 months ag o Stopped drinking 8 months ag o Problems Problem Type SNOMED Code ICD Code Onset Dates Problem Status W/U Status Risk Notes Problem Tobacco user (579516047) Nicotin e dependence, cigarettes, uncomplicated (F17.210) ActiveconfirmedProblemAnxiety (88444520)Anxiety (F41.9)ActiveconfirmedProblem Peripheral neuropathy (008456120)Peripheral neuropathy (G62.9)Activeconfirmed ProblemHypertriglyceridemia (929725505)Hypertriglyceridemia (E78.1)Active confirmedProblemDiabetes mellitus uncontrolled (021745131)Uncontrolled diabetes mellitus (E11.65)ActiveconfirmedProblemHigh cholesterol (78566302)High cholesterol (E78.00)ActiveconfirmedProblemType II diabetes mellitus without complication (108728100)Diabetes (E11.9)ActiveconfirmedProblemDepression (856762605)Depression (F32.A)ActiveconfirmedProblemNoncompliance with treatment (3145617)Noncompliance (Z91.199)Activeconfirmed Vital Signs Blood pressure diastolic 80 mm Hg 09/20/2025 BS 337 Height 69 in 09/20/2025 BS 337 Blood pressure systolic 128 mm Hg 09/20/2025 BS 3 37 Weight 210 lbs 09/20/2025 BS 337 BMI 31.01 kg/m2 09/20/2025 BS 337 Encounters Encounter Location Date Provider Diagnosis [facility] [address] [place] [address] 09/20/2025 Yaa Sanchez Uncontrolled diabete s mellitus [...] below 65 consecutively. Reviewed with patient the group home effects of Diabetes Mellitus on the body [...] use thinks food poisoning Plan Of Treatment Pending Test Test Name Order Date CMP (COMPLETE METABOLIC PANEL) 3 HEMOGLOBIN A1C (GLYCO) 09/09/2023 HEMOGLOBIN A1C (GLYCO) 09/20/2025 INSULIN, TOTAL 09/20/2025 INSULIN, TOTAL 09/09/2023 LIPID PANEL (CHOL/TRIG/HDL/LDL) 09/09/20 23 LIPID PANEL (CHOL/TRIG/HDL/LDL) 09/20/20 25 CBC WITH DIFF 09/09/2023 URIC ACID 09/20/2025 CARDIO Stress Test - Treadmill Exercise 09/09/2023 THYROID PANEL (T4/TSH/FREE T3) 5 THYROID PANEL (T4/TSH/FREE T3) 3 PSA, SCREENING 09/20/2025 CMP (COMP MET PHAN) w/eGFR CKD-EPI 2024 CBC WITH DIFF 09/20/2025 Insurance Providers Payer Name Payer Address Payer Phone Subscriber Number Group Number Insured Name Patient Relationship to Insured Coverage Start Date Coverage End Date [facility] [address] [address] [place] [address] [id number] Lauren Yusuf - patient is the insured Medical (General) History Medical History History ICD Code Depression F32.A Anxiety F41.9 Surgical History Surgery Date(Month/Year) APPENDECTOMY
--- OUTSIDE RECORDS SUMMARY | 2025-09-23 11:26 | XMS_ITS | Patient Health Record ---
Author Organization [facility] Address [address] [place] [address] Care Team Providers Care Independent Freight Agent Name Role Phone Corey Harris Primary Care Provider Reason For Referral No Information Plan Of Treatment No Information Insurance Providers Payer Name Payer Address Payer Phone Subscriber Number Group Number Insured Name Patient Relationship to Insured Coverage Start Date Coverage End Date [employer] [address] [place] [address] [id number] CHAPO MARIA Self - patient is the insured 2
--- OUTSIDE RECORDS SUMMARY | 2025-09-23 11:27 | XMS_ITS | CCD ---
Author Organization [facility] [employer] Care Team Providers Care Tooth Polisher Name Role Phone YAYO GARCIA Attending Unavailable MORRIS, DR MEGAN Malik Consulting Unavailable REQUEST, NONE LISTED Primary Care Unavaila YAYO Arguelles Admitting Unavailable JOHN BRUNO Consulting Unavailable Yaa Sanchez Attending Unavailable Yaa Sanchez Admitting Unavailable NO FAMILY, PHYSICIAN Primary Care Unavailable Problems Active Problems Problem ClassificationProblemDateDocumented DateEpisodic/ChronicOther upper respiratory infections (1 source)Acute upper respiratory infection, unspecified; Translations: [ACUTE UP RESPIRATORY INFECTION UNS]Onset: 56-26-9415VeetwrovIkhwwiper-related disorders (1 source)Nicotine dependence, cigarettes, uncomplicated; Translations: [NICOTINE DEPEND CIGARETTES UNCOMP]Onset: 46-16-0561HttwdrbDsnogrdgftqc (2 sources)COUGH, UNSPECIFIED; Translations: [COUGH, UNSPECIFIED]Onset: 03-08-6891Vubritcttvur (1 source)CONTACT W/AND (SUSP) EXPOS COVID-19; Translations: [CONTACT W/AND (SUSP) EXPOS COVID-19]Onset: 06-99-2273Omdktsgajjou (1 source)Encounter for general adult medical examination without abnormal findings; Translations: [Encounterfor general adult medical examination without abnormal findings]Onset: 01-05-2024 Past or Other Problems Problem ClassificationProblemDateDocumented DateEpisodic/ChronicUnclassified (1 source)COUGH, UNSPECIFIED; Translations: [COUGH, UNSPECIFIED]Onset: 08-28-2021 Results Test NameValueInterpretationReference RangeFacilityComprehensive Metabolic Panel on 66-07-4604Xeszqvr [Mass/Vol]4.1 g/dLNormal3.5-5.7FParma Community General HospitalComment on above:Performed By: #### CMP #### [facility] [address] [place] [address] USAAlbumin/Globulin [Mass ratio]1.6 {ratio}NormalSalem Regional Medical CenterComment on above:Performed By: #### CMP #### [facility] [address] [place] [address] USAALP [Catalytic activity/Vol]172 U/ASqfv63-347SkcnwerytSalem Regional Medical CenterComment on above:Result Comment: PERFORMED BY: [place] [address] PATHOLOGIST PRINT PRODUCTION MANAGER FELICITY MARIEE M.D.Performed By: #### CMP #### [facility] [address] [place] [address] USAALT [Catalytic activity/Vol]31 U/LNormal7-52Salem Regional Medical CenterComment on above:Performed By: #### CMP #### [facility] [address] [place] [address] USAAnion gap [Moles/Vol]18.4 mmol/LHigh6.0-15.0Sal[facility] Regional Medical CenterComment on above:Performed By: #### CMP #### [facility] [address] [place] [address] USAAST [Catalytic activity/Vol]16 U/IPbdhpp72-56CcnczfagxSalem Regional Medical CenterComment on above:Performed By: #### CMP #### [facility] [address] [place] [address] USABilirubin [Mass/Vol]0.4 mg/dLNormal0.3-1.0Sal[facility] Regional Medical CenterComment on above:Performed By: #### CMP #### [facility] [address] [place] [address] USACalcium [Mass/Vol]8.9 mg/dLNormal8.6-10.3FParma Community General HospitalComment on above:Performed By: #### CMP #### [facility] [address] [place] [address] USAChloride [Moles/Vol]98 mmol/DAbpkxv28-016CmmrzxoqiSalem Regional Medical CenterComment on above:Performed By: #### CMP #### [facility] [address] [place] [address] USACO2 [Moles/Vol]21.6 mmol/CHaoeal95.0-31.0Sal[facility] Regional Medical CenterComment on above:Performed By: #### CMP #### [facility] [address] [place] [address] USACreatinine [Mass/Vol]0.83 mg/dLNormal0.70-1.30Sal[facility] Regional Medical CenterComment on above:Performed By: #### CMP #### [facility] [address] [place] [address] USAGFR/1.73 sq M.predicted MDRD (S/P/Bld) [Vol rate/Area] mL/min/{1.73_m2}NormalSalem Regional Medical CenterComment on above: Performed By: #### CMP #### [facility] [address] [place] [address] USAGlobulin (S) [Mass/Vol]2.6 g/dLNormalSalem Regional Medical CenterComment on above:Performed By: #### CMP #### [facility] [address] [place] [address] USAGlucose [Mass/Vol]390 mg/eQYhvs77-463PnyakfzseSalem Regional Medical CenterComment on above:Result Comment: Random Glucose Reference Range is dependent on time and content of last meal. Glucose of more than 200 mg/dL in a nonstressed, ambulatory subject supports the diagnosis of Diabetes Mellitus. ADA recommended reference rangePerformed By: #### CMP #### [facility] [address] [place] [address] USAPotassium [Moles/Vol]4.0 mmol/LNormal3.5-5.1FParma Community General HospitalComment on above:Performed By: #### CMP #### [facility] [address] [place] [address] USAProtein [Mass/Vol]6.7 g/dLNormal6.4-8.9Sal[facility] Regional Medical CenterComment on above:Performed By: #### CMP #### [facility] [address] [place] [address] USASodium [Moles/Vol]134 mmol/NNad778-284NzjppbicsSalem Regional Medical CenterComment on above:Performed By: #### CMP #### [facility] [address] [place] [address] USAUrea nitrogen [Mass/Vol]13 mg/dLNormal7-25Sal[facility] Medical CenterComment on above:Performed By: #### CMP #### [facility] [address] [place] [address] USACovid-19 PCR (CVDTBH)on 33-17-9652XEUF-CoV-2 (COVID-19) RNA NASIMA+probe Ql (Unsp spec)Not detectedNormalNOT DETECTEDThe [facility] Comment on above:Result Comment: This test is not yet approved or cleared by the [place] FDA. When there are no FDA-approved or cleared tests available, and other criteria are met, FDA can make tests available under an emergency access mechanism called an Emergency Use Authorization (EUA). The EUA for this test is supported by the [place] of Health and Human Service's (HHS's) declaration that circumstances exist to justify the emergency use of in vitro diagnostics for the detection and/or diagnosis of the virus that causes COVID- 19. This EUA will remain in effect (meaning [...] of clinical signs and symptoms consistent with SARS-CoV-2.Performed By: #### CVDTBH #### [facility] [address] [address] [address] Jolene GraciaXR CHEST 1 Von 96-08-1979XQ CHEST 1 VEXAMINATION: XR CHEST 1 V HISTORY: COUGH COMPARISON: No relevant comparison available. FINDINGS: LUNGS: No significant pulmonary parenchymal abnormalities. VASCULATURE: No increased pulmonary vasculature. PLEURA: No pneumothorax, effusion, or pleural thickening. CARDIAC: No cardiomegaly or cardiac silhouette abnormality. MEDIASTINUM: No visible mass or adenopathy. BONES: No fracture or visible bone lesion. OTHER: Negative. IMPRESSION: 1. Normal examination. Electronically authenticated by: MEGAN CACERES Date: 2021-08-28 14:02[facility] Encounters Encounter DateEncounter TypeCare ProviderFacilityStart: 01-05-2024 End: 69-18-3335rgojgzdbitKbxhxw [facility] HospitalmerFacility:[facility] Ohiotart: 08-28-2021 End: 23-86-4934tztivxvzhaWADTQD RODRIGUEZFacility:H1 Payers DatePayer CategoryPayerPolicy [id number] Health [id number] Summary Purpose Family History No Family History Records FoundNo Family History Records Found Advance Directives No Advanced Directives Records FoundNo Advanced Directives Records Found Additional Source Comments (unrecognized sect ion and content) No Status Records FoundNo Status Records Found INFORMATION SOURCE (unrecogn ized section and content) DATE CREATED AUTHOR 08/30/2021 [facility] DATE CREATED AUTHOR AUTHOR'S ORGANIZ ATION 01/17/2024 [facility] FOR RECORDS PERTAINING TO PATIENTS [...] BE BASED ON THE PRIMARY CLINICAL RECORDS. [facility] [employer] [facility]. provides no warranty or guarantee of the accuracy or completeness of information in this document.
[2025-09-23 12:28] LABS: Alanine Aminotransferase 33 U/L (16-63); Albumin Globulin Ratio 1.2; Albumin Level 3.8 g/dL (3.4-5.0); Alkaline Phosphatase 116 U/L (46-116); Anion Gap 12.4; Aspartate Amino Transferase 11 U/L (15-37); Blood Urea Nitrogen 13.0 mg/dL (7.0-18.0); Calcium 9.1 mg/dL (8.5-10.1); Carbon Dioxide 28.4 mmol/L (21.0-32.0); Chloride 101 mmol/L (98-107); Cholesterol 200 mg/dL (<=200); Estimated GFR (African America >60 (>=60 mL/min/1.73m^2); Estimated GFR (Non-African Ame >60 (>=60 mL/min/1.73m^2); Free T3 2.68 pg/mL (2.18-3.98); Globulin 3.1 g/dL; Glucose 273 mg/dL (74-106); HDL Cholesterol 32 mg/dL (40-60); Potassium 3.8 mmol/L (3.5-5.1); Sodium 138 mmol/L (136-145); Thyroid Stimulating Hormone 0.617 uIU/mL (0.358-3.740); Total Protein 6.9 g/dL (6.4-8.2); Triglycerides 510 mg/dL (<=150); Uric Acid 3.8 mg/dL (3.5-7.2)
[2025-09-23 13:12] LABS: Hematocrit 44.9 % (42.0-54.0); Hemoglobin 15.5 g/dL (14.0-18.0); Immature Granulocytes Abs Auto 0.02 10^3/uL (0.00-0.03); Immature Granulocytes Pct Auto 0.4 % (0.0-0.5); Lymphocytes Absolute Auto 2.1 10^3/uL (1.2-3.8); Mean Corpuscular HGB Conc 34.5 g/dL (29.9-35.2); Mean Corpuscular Hemoglobin 31.6 pg (25.9-34.0); Mean Corpuscular Volume 91.6 fL (80.0-94.0); Platelet Count 166 10^3/uL (150-450); Red Blood Count 4.90 10^6/uL (4.70-6.10); White Blood Count 5.1 10^3/uL (4.0-11.0)
== END 2025-09-23 11:23 | disposition home or self-care (01) ==
PROVIDERS: PCP Nurse Practitioner Family; Visit Provider Nurse Practitioner Family
DX: Z00.00 Encounter for general adult medical examination without abnormal findings (principal); Z12.5 Encounter for screening for malignant neoplasm of prostate
CPT/HCPCS: 36415; 80053; 80061; 83036; 83525; 83721; 84436; 84443; 84481; 84550; 85025; G0103